=== PATIENT | male | born 1940 | race Caucasian/White ===

== ENCOUNTER 2016-04-23 21:32 | Inpatient (IN) | payer MEDICARE, OTHER ==
[~2016-04-23] VITALS: Ht 170.2 cm; Wt 72.1 kg
[~2016-04-23 21:32] MED LIST: ASPIRIN325 MG PO; ATIVAN0.5 MG PO; ATIVAN1 MG PO; BENAZEPRIL HCL10 MG PO; CIPRO500 MG PO; COMBIGAN OPHT DR5 ML EACH EYE; DECADRON4 MG PO; DEMEROL50 MG PO; FISH OIL 1,2001 CA1 PO; LOTREL 5/20 MG1 CAP PO; LUMIGAN 0.01%2.5 ML EACH EYE; MOBIC7.5 MG PO; NEURONTIN 300300 MG PO; NEXIUM40 MG PO; NIACIN500 MG PO; NIASPAN500 MG PO; NYSTATIN ORAL SU5 ML PO; PHENERGAN25 M1 PO; PRAVACHOL20 MG; REMERON15 MG PO; RESTORIL15 MG PO; RYTHMOL225 MG PO; SYNTHROID25 MCG PO; SYNTHROID50 MCG PO; TIMOPTIC 0.5 % O5 ML EACH EYE; ULTRAM50 MG PO; WELCHOL625 MG PO; ZANTAC150 MG; ZOFRAN8 MG PO; ZOLOFT50 MG PO
[2016-04-23 23:35] LABS: BASOPHILS 0.2 % (0.0-2.0); EOSINOPHILS 0.6 % (0-7); HEMATOCRIT 40.6 % (42.0-54.0); HEMOGLOBIN 13.3 g/dL (13.5-17.5); IMMATURE GRANULOCYTES 0.7 % (0-5); LYMPHOCYTES 7.7 % (15-50); MCH 32.7 pg (26.0-34.0); MCHC 32.8 g/dL (31.0-37.0); MCV 99.8 fL (80.0-100.0); MEAN PLATELET VOLUME 10.1 fL (7.4-10.4); MONOCYTES 4.7 % (2-11); NEUTROPHILS 86.1 % (40-80); RBC 4.07 10x6/uL (4.20-6.10)
[2016-04-23 23:38] LABS: PLATELET COUNT 250 10x3/uL (130-400)
[2016-04-23 23:50] LABS: ALBUMIN 2.4 g/dL (3.4-5.0); ALKALINE PHOSPHATASE 72 U/L (46-116); ALT (SGPT) 35 U/L (10-68); BILIRUBIN - TOTAL 0.26 mg/dL (0.2-1.3); CALC OSMOLALITY 279 mosm/kg (275-300); CARBON DIOXIDE 33.6 mmol/L (21.0-32.0); CHLORIDE - SERUM 101 mmol/L (98-107); GLUCOSE 96 mg/dL (74-106); POTASSIUM - SERUM 3.5 mmol/L (3.5-5.1); PROTEIN - SERUM 6.2 g/dL (6.4-8.2); SODIUM 141 mmol/L (136-145); UREA NITROGEN 10 mg/dL (7-18); eGFR NON AFRICAN AMERICAN 77 mL/min (90-120)
[2016-04-24 00:06] LABS: PRO BNP 229 pg/mL (0-450)
[2016-04-24 00:11] LABS: TROPONIN-I 1.235 ng/mL (0.000-0.060)
--- NOTE | 2016-04-24 01:50 | NUR ---
RECEIVED PATIENT TO ROOM IN STABLE CONDITION. NO SIGNS OF DISTRESS NOTED AT THIS TIME. FAMILY PRESENT. ORIENTED TO ROOM AND USE OF CALL LIGHT.
[2016-04-24 02:22] VITALS: BP 124/85; BMI 24.9
[2016-04-24 04:00] VITALS: BP 86/58
[2016-04-24 06:58] LABS: CKMB 2.7 U/L (0.0-3.6); CREATINE KINASE 50 UL (21-232)
[2016-04-24 06:59] LABS: TROPONIN-I 1.696 ng/mL (0.000-0.060)
--- NOTE | 2016-04-24 07:25 | NUR ---
LYING SUPINE WITH HOB AT 15 DEGREES. OXYGEN ON 2L VIA NC. CALL LIGHT IN REACH, WILL CONTINUE WITH PLAN OF CARE.
[2016-04-24 08:24] VITALS: BP 97/69
[2016-04-24 10:17] LABS: BASOPHILS 0.2 % (0.0-2.0); EOSINOPHILS 0.3 % (0-7); HEMATOCRIT 37.1 % (42.0-54.0); HEMOGLOBIN 11.9 g/dL (13.5-17.5); IMMATURE GRANULOCYTES 0.4 % (0-5); LYMPHOCYTES 14.7 % (15-50); MCH 32.2 pg (26.0-34.0); MCHC 32.1 g/dL (31.0-37.0); MCV 100.3 fL (80.0-100.0); MEAN PLATELET VOLUME 10.9 fL (7.4-10.4); MONOCYTES 6.8 % (2-11); NEUTROPHILS 77.6 % (40-80); PLATELET COUNT 228 10x3/uL (130-400); RDW 20.3 % (11.5-14.5); WBC 9.3 10x3/uL (4.8-10.8)
--- NOTE | 2016-04-24 10:53 | NUR ---
SCHEDULED MEDICATIONS ADMINISTERED AT THIS TIME. TAKEN WITHOUT DIFFICULTY. FAMILY AT BEDSIDE. ASSESSMENT PERFORMED PER FLOWSHEET. CALL LIGHT IN REACH, WILL CONTINUE WITH PLAN OF CARE.
[2016-04-24 12:43] VITALS: BP 84/55
[2016-04-24 13:06] LABS: CKMB 2.6 U/L (0.0-3.6); CREATINE KINASE 51 UL (21-232)
[2016-04-24 13:11] LABS: TROPONIN-I 0.958 ng/mL (0.000-0.060)
--- NOTE | 2016-04-24 14:00 | NUR ---
FAMILY REMAINS AT PT'S BEDSIDE. DENIES NEEDS. CALL LIGHT IN REACH. WILL CONTINUE WITH PLAN OF CARE.
[2016-04-24 14:43] VITALS: Ht 170.2 cm; Wt 72.1 kg
[2016-04-24 16:21] VITALS: BP 111/80
--- NOTE | 2016-04-24 18:43 | NUR ---
DENIES NEEDS AT THIS TIME. OXYGEN ON 2L VIA NC. FAMILY AT BEDSIDE. WILL CONTINUE WITH PLAN OF CARE.
[2016-04-24 19:00] VITALS: BP 120/82
--- NOTE | 2016-04-24 19:00 | NUR ---
BEDSIDE REPORT RECEIVED AND CARE OF PT ASSUMED. PT LYING IN SUPINE POSITION WITH EYES CLOSED. RESPIRATIONS EVEN AND UNLABORED. TELEMETRY REPORTS 70 SR AT THIS ASSESSMENT. IV IN RIGHT AC SALINE LOCKED. WILL MONITOR CLOSLEY FOR NEEDS. CALL LIGHT WITHIN REACH.
[2016-04-24 19:38] LABS: CKMB 2.4 U/L (0.0-3.6); CREATINE KINASE 34 UL (21-232)
[2016-04-24 19:41] LABS: TROPONIN-I 0.696 ng/mL (0.000-0.060)
--- NOTE | 2016-04-24 21:28 | NUR ---
HS MEDICATIONS GIVEN. WILL CONTINUE TO MONITOR FOR NEEDS.
[2016-04-25] VITALS (13 sets, daily range): BP systolic 52–157; BP diastolic 32–110
--- NOTE | 2016-04-25 01:46 | NUR ---
GAVE LOTENSIN PER PRN ORDER FOR ELEVATED BP OF 154/105. WILL MONITOR FOR EFFECTIVENESS.
[2016-04-25 05:45] LABS: BASOPHILS 0.1 % (0.0-2.0); EOSINOPHILS 1.4 % (0-7); HEMATOCRIT 41.3 % (42.0-54.0); HEMOGLOBIN 13.6 g/dL (13.5-17.5); IMMATURE GRANULOCYTES 0.5 % (0-5); MCH 32.6 pg (26.0-34.0); MCHC 32.9 g/dL (31.0-37.0); MEAN PLATELET VOLUME 10.3 fL (7.4-10.4); MONOCYTES 5.9 % (2-11); NEUTROPHILS 74.1 % (40-80); PLATELET COUNT 212 10x3/uL (130-400); RBC 4.17 10x6/uL (4.20-6.10); RDW 20.1 % (11.5-14.5); WBC 8.7 10x3/uL (4.8-10.8)
[2016-04-25 06:23] LABS: ALBUMIN 2.3 g/dL (3.4-5.0); ALKALINE PHOSPHATASE 67 U/L (46-116); ALT (SGPT) 29 U/L (10-68); BILIRUBIN - TOTAL 0.34 mg/dL (0.2-1.3); CALC OSMOLALITY 273 mosm/kg (275-300); CALCIUM 9.3 mg/dL (8.5-10.1); CARBON DIOXIDE 29.1 mmol/L (21.0-32.0); CHLORIDE - SERUM 100 mmol/L (98-107); CREATININE - SERUM 0.9 mg/dL (0.6-1.3); GLUCOSE 87 mg/dL (74-106); POTASSIUM - SERUM 3.9 mmol/L (3.5-5.1); PROTEIN - SERUM 6.6 g/dL (6.4-8.2); SODIUM 137 mmol/L (136-145); UREA NITROGEN 14 mg/dL (7-18); eGFR NON AFRICAN AMERICAN 87 mL/min (90-120)
--- NOTE | 2016-04-25 08:10 | NUR ---
PATIENT IN SUPINE POSITION TALKING WITH AT BEDSIDE. ASSESSMENT WAS COMPLETED AT THIS TIME. PATIENT AND DENIES NEEDS.
--- NOTE | 2016-04-25 10:25 | NUR ---
SPOKE WITH MEJIA LUGO FOR DR LOWERY. EXPLAINED THAT PATIENT IS CONCERNED HE HAS NOT HAD A BOWEL MOVEMENT SINCE FRIDAY. HE SAID THAT HE USUALLY TAKES MILK OF MAGNESIA EVERY NIGHT SO THAT HE CAN HAVE A BOWEL MOVEMENT AND HE HAS NOT HAD ANY SINCE HE HAS BEEN HERE. ALSO EXPLAINED THAT HE HAS HAD A HEADACHE FOR 2 DAYS THAT HE IS NOT GETTING ANY RELIEF FROM AND THAT HE HAS BEEN GIVEN DEMEROL, ULTRAM AND TYLENOL WITHOUT RELIEF. SHE STATED THAT SHE WOULD PUT SOME ORDERS IN.
--- NOTE | 2016-04-25 11:50 | NUR ---
PATIENT BACK TO BED FROM THE SHOWER. B/P (BEST OF 5) WAS 76/54 MAP 59. PATIENT SEEMS TO BE ASYMPTOMATIC AT THIS TIME. HE WAS PLACED SUPINE WITH FEET ELEVATED AT THIS TIME. WENT AND SPOKE WITH MEJIA LUGO. AT THIS TIME SHE JUST WANTS TO MONITOR THE PATIENTS BLOOD PRESSURES.
--- NOTE | 2016-04-25 12:23 | NUR ---
PER DR GOLDEN'S VERBAL ORDER, PRESSURE BAG BOLUS OF 500 CC/HR STARTED. WILL RUNN AT 100CC/HR AFTER COMPLETED. B/P 55/36 (45) HR 118.
--- NOTE | 2016-04-25 12:35 | NUR ---
SPOKE WITH MEJIA LUGO BECAUSE PATIENTS ANDREW BLOOD PRESSURE IS 52/32. ANOTHER 500 BOLUS ORDERED THROUGH PRESSURE BAG.
--- NOTE | 2016-04-25 12:53 | NUR ---
SPOKE WITH DR. HARRISON REGARDING BP 55/34. PATIENT IS ASYMPTOMATIC. NO NEW ORDERS PER DR. HARRISON. WILL CONTINUE TO MONITOR BP.
--- NOTE | 2016-04-25 19:15 | NUR ---
PATIENT COMING BACK FROM THE BATHROOM AND BEGAN HAVING SUDDEN ONSET SEVERE CHEST PAIN UNDER THE RIGHT BREAST THAT "SHOOTS STRAIGHT THROUGH" AND WENT UP INTO HIS SHOULDER. B/P 205/133. RAPID RESPONSE CALLED.
[2016-04-25 20:18] LABS: CKMB 1.2 U/L (0.0-3.6); CREATINE KINASE 27 UL (21-232); TROPONIN-I 0.334 ng/mL (0.000-0.060)
[2016-04-26] VITALS: BP 127/91
[2016-04-26 06:07] VITALS: BP 140/89
[2016-04-26 08:31] VITALS: BP 117/87
--- NOTE | 2016-04-26 09:22 | NUR ---
SCHEDULED MEDICATIONS ADMINISTERED AT THIS TIME. PT IS ALERT AND ORIENTED X4. ASSESSMENT PERFORMED PER FLOWSHEET. FAMILY AT BEDSIDE. SRX2 AND BED IN LOWEST POSITION AND LOCKED. CALL LIGHT IN REACH. WILL CONTINUE WITH PLAN OF CARE.
--- NOTE | 2016-04-26 10:30 | NUR ---
ASSISTED PT UP TO BEDSIDE COMMODE AT THIS TIME. PT PASSED GAS, BUT WAS UNABLE TO HAVE A BM. VOIDED 200 ML IN COMMODE. JULIO C CARE PROVIDED AND SKIN ASSESSMENT PERFORMED. NO S/S OF BREAKDOWN PRESENT. DENIES FURTHER NEEDS. CALL LIGHT IN REACH, WILL CONTINUE WITH PLAN OF CARE.
[2016-04-26 11:17] LABS: BASOPHILS 0.1 % (0.0-2.0); EOSINOPHILS 1.6 % (0-7); HEMATOCRIT 35.1 % (42.0-54.0); HEMOGLOBIN 11.3 g/dL (13.5-17.5); IMMATURE GRANULOCYTES 0.3 % (0-5); LYMPHOCYTES 17.3 % (15-50); MCHC 32.2 g/dL (31.0-37.0); MCV 99.4 fL (80.0-100.0); MEAN PLATELET VOLUME 9.9 fL (7.4-10.4); MONOCYTES 4.9 % (2-11); NEUTROPHILS 75.8 % (40-80); PLATELET COUNT 177 10x3/uL (130-400); RBC 3.53 10x6/uL (4.20-6.10); RDW 19.7 % (11.5-14.5); WBC 9.1 10x3/uL (4.8-10.8)
[2016-04-26 11:30] LABS: ALBUMIN 1.9 g/dL (3.4-5.0); ALKALINE PHOSPHATASE 62 U/L (46-116); ALT (SGPT) 27 U/L (10-68); CALC OSMOLALITY 266 mosm/kg (275-300); CALCIUM 8.4 mg/dL (8.5-10.1); CARBON DIOXIDE 32.5 mmol/L (21.0-32.0); CHLORIDE - SERUM 100 mmol/L (98-107); CREATININE - SERUM 0.8 mg/dL (0.6-1.3); GLUCOSE 96 mg/dL (74-106); POTASSIUM - SERUM 4.2 mmol/L (3.5-5.1); PROTEIN - SERUM 5.6 g/dL (6.4-8.2); SODIUM 134 mmol/L (136-145); UREA NITROGEN 11 mg/dL (7-18); eGFR NON AFRICAN AMERICAN > 90 mL/min (90-120)
[2016-04-26 11:36] VITALS: BP 116/82
--- NOTE | 2016-04-26 15:12 | NUR ---
NUTRITION MONITORING & EVAL CHART REVIEWED. PT VISIT. 25% INTAKE RECENT MEALS. PT STATES "AFTER MEDICATION LAST NITE EVERYTHING TASTED BITTER. DOES REPORT TASTE IS STARTING TO IMPROVE. RD FOLLOWING
[2016-04-26 15:30] VITALS: BP 108/77
--- NOTE | 2016-04-26 16:40 | CN ---
PATIENT NAME:KENNETH DAVIS MEDICAL RECORD: [id number] : 42 LOCATION:[id number] ADMIT DATE: 04/23/16 ACCOUNT: [id number] CONSULTING PHYSICIAN: DINAH HARRISON MD REFERRING PHYSICIAN: KASHIF LOWERY MD DATE OF CONSULTATION: 04/24/2016 Cardiology Consultation DIAGNOSES: 1. Non-Q-wave myocardial infarction. 2. Coronary artery disease. 3. Pneumonia. 4. Lung cancer. 5. Hypertension. 6. Hyperlipidemia. 7. Paroxysmal atrial fibrillation. 8. Sick sinus syndrome. 9. Status post pacemaker. HISTORY OF PRESENT ILLNESS: Mr. Davis presents with pneumonia. He has been having chest pain. He thought that this was secondary to coughing; however, his troponin is positive. He does not have a history of ischemic heart disease and does have a history of dysrhythmia, but has not had any atrial fibrillation on telemetry since being here. His EKG is with nonspecific ST-T abnormalities. PHYSICAL EXAMINATION: GENERAL APPEARANCE: Well-nourished, well-developed, appears stated age. Level of distress, comfortable. PSYCHIATRIC: Mental status, alert, normal affect. Orientation, oriented to time, place and person. EYES: Lids and conjunctiva, noninjected. No discharge, no pallor. ENT: Lips, teeth, gums, normal dentition. Oropharynx, no cyanosis, no pallor. NECK: Carotid arteries, bilateral normal upstroke, no bruits, no thrills. JUGULAR VEINS: No jugular venous pressure or distention. CERVICAL LYMPH NODES: Nontender, nonenlarged. THYROID: Not enlarged. Nontender. No nodules. LUNGS: Respiratory effort, unlabored. CHEST: Normal curvature. No thoracic deformity. No chest wall tenderness. Percussion, resonant. Auscultation, clear. No wheezes, no rales, no rhonchi. CARDIOVASCULAR: Precordial exam, nondisplaced. No heaves or pericardial thrills. Rate and rhythm, regular. Heart sounds, normal S1, normal S2. No S3, no gallop, no rub. Systolic murmur, not heard. Diastolic murmur, not heard. EXTREMITIES: No cyanosis, no edema. Peripheral pulses, full and equal in all extremities, except as noted. No bruits appreciated. ABDOMEN: Soft, nondistended. Normal aorta. No bruit. Nontender. No masses. Liver, nontender, no hepatomegaly. Spleen, nontender, no splenomegaly. MUSCULOSKELETAL: No joint tenderness. No joint swelling. No erythema. NEUROLOGICAL: Normal gait, normal strength, normal tone. SKIN: Warm and dry. REVIEW OF SYSTEMS: The patient reports easy bruising but reports no swollen glands. The patient reports no fever, no night sweats, no significant weight gain, no significant weight loss. No significant exercise tolerance. The patient reports no dry eyes, no irritation, no vision change. Patient reports CONSULT REPORT [id number] KENNETH DAVIS no difficulty hearing and no ear pain. Patient reports no frequent nose bleeds or nose and sinus problems. Patient reports on arm pain on exertion. No shortness of breath while lying down. No history of heart murmur. Patient reports no cough, no wheezing or coughing up blood. Patient reports no abdominal pain, no vomiting. Normal appetite. No diarrhea and not vomiting blood. No nausea and no constipation. Patient reports no incontinence. No difficulty urinating. No hematuria. No increased frequency. Patient reports no muscle aches. No weakness, no arthralgias, no back pain. No swelling of the extremities. Patient reports no abnormal mole, no jaundice, no rashes. Reports no loss of consciousness. No weakness and no numbness. No seizures, dizziness, or headaches. The patient reports no depression, no sleep disturbance, feeling safe in a relationship and no alcohol abuse. Patient reports on fatigue. Reports no runny nose or sinus pressure. No itching, no hives, and no frequent sneezing. OVERALL IMPRESSION: Non-Q-wave myocardial infarction in conjunction with pneumonia, most likely he does have hemodynamically significant coronary artery disease. We will proceed with coronary angiography after treatment of the pneumonia and stability from a pulmonary standpoint. TRANSINT:[id number] Voice Confirmation ID: [id number] DOCUMENT ID: [id number] DINAH HARRISON MD at 1640 CC: [id number] DICTATION DATE: 04/24/16 1259 STEAM SHOVEL OPERATOR: 04/24/16 1323 [place] [address]
--- NOTE | 2016-04-26 16:57 | NUR ---
Patient Name: KENNETH DAVIS Admission Status: ER Accout number: [id number] Admission Date: 04-23-2016 : 1940 Admission Diagnosis:NON-ST ELEVATION (NSTEMI) MYOCARDIAL INFARCTION Attending: BEVERLEY Current LOS: 3 Anticipated DC Date: 04-29-2016 Planned Disposition: Home with Home Health Primary Insurance: MEDICARE A & B Discharge Planning Comments: CM MET WITH PATIENT AND DAUGHTER (LESLEY) REGARDING D/C NEEDS AND PLANS. PATIENT STATED HE LIVES WITH HIS SPOUSE. PATIENT HAS A RAMP TO ENTER HIS HOME AND NO STAIRS INSIDE. PATIENT HAS HELP WITH HIS BATH, DRESSING, AND MEDS. PATIENT HAS A WALKER, CANE, BS COMMODE, SHOWER CHAIR, OXYGEN, NEBULIZER, AND PORTABLE O2. OXYGEN IS SUPPLIED BY [facility]. PATIENTS PCP IS DR. SALES AND PHARMACY IS [facility]. [facility]. CM WILL CONTINUE TO FOLLOW PATIENT WITH D/C NEEDS AND PLANS. PCP DR. SALES [facility] [phone] LESLEY (DAUGHTER) [phone] [facility]- [phone] Addictions Counselor Assistant: Maira Dhaliwal Is the patient Alert and Oriented? Yes 0 * How many steps to enter\exit or inside your home? RAMP 0 * PCP DR. SALES 0 * Pharmacy [facility] 0 * Preadmission Environment Home with Family 0 * ADLs Partial Dependent 0 * Partial ADLs (Assistance needed) Ambulation Bathing Dressing Medication Management Toileting Transfers 0 * Equipment Bedside Commode Cane Nebulizer Oxygen Shower Chair Walker 0 * Other Equipment PORTABLE OXYGEN 0 * List name and contact numbers for known caregivers / representatives who currently or will assist patient after discharge: LESLEY (DAUGHTER) [phone] 0 * Community resources currently utilized [facility] 0 * Please name any agencies selected above. CURRENT WITH [facility] 0 * Additional services required to return to the preadmission environment? Yes 0 * Can the patient safely return to the preadmission environment? Yes 0 * Has this patient been hospitalized within the prior 30 days at any hospital? No 0 Grand Total: 0
--- NOTE | 2016-04-26 19:57 | NUR ---
PT RESTING IN BED, FAMILY AT BEDSIDE. PT IS A&OX4. PT DENIES NEEDS AT THIS TIME. BED LOW. CL IN REACH.
[2016-04-26 20:20] VITALS: BP 142/106
[2016-04-27] VITALS (48 sets, daily range): BP systolic 108–159; BP diastolic 85–133
[2016-04-27 05:49] LABS: BASOPHILS 0.1 % (0.0-2.0); EOSINOPHILS 0.1 % (0-7); HEMATOCRIT 35.5 % (42.0-54.0); HEMOGLOBIN 11.3 g/dL (13.5-17.5); IMMATURE GRANULOCYTES 0.2 % (0-5); LYMPHOCYTES 15.3 % (15-50); MCH 31.6 pg (26.0-34.0); MCHC 31.8 g/dL (31.0-37.0); MCV 99.2 fL (80.0-100.0); MEAN PLATELET VOLUME 10.3 fL (7.4-10.4); MONOCYTES 3.6 % (2-11); NEUTROPHILS 80.7 % (40-80); PLATELET COUNT 192 10x3/uL (130-400); RBC 3.58 10x6/uL (4.20-6.10); RDW 19.7 % (11.5-14.5)
[2016-04-27 06:26] LABS: ALBUMIN 1.7 g/dL (3.4-5.0); ALKALINE PHOSPHATASE 57 U/L (46-116); ALT (SGPT) 26 U/L (10-68); BILIRUBIN - TOTAL 0.26 mg/dL (0.2-1.3); CALC OSMOLALITY 281 mosm/kg (275-300); CALCIUM 8.9 mg/dL (8.5-10.1); CARBON DIOXIDE 29.6 mmol/L (21.0-32.0); CHLORIDE - SERUM 104 mmol/L (98-107); CREATININE - SERUM 0.8 mg/dL (0.6-1.3); GLUCOSE 162 mg/dL (74-106); POTASSIUM - SERUM 3.7 mmol/L (3.5-5.1); PROTEIN - SERUM 5.7 g/dL (6.4-8.2); SODIUM 140 mmol/L (136-145); UREA NITROGEN 9 mg/dL (7-18); eGFR NON AFRICAN AMERICAN > 90 mL/min (90-120)
--- NOTE | 2016-04-27 07:22 | NUR ---
AWAKE AND ALERT THIS AM. PT DENIES NEEDS AT PRESENT TIME. PT'S GOWN AND UNDERWEAR OFF AT THIS TIME AND HE STATES, "I HONESTLY DON'T KNOW WHAT HAPPENED LAST NIGHT."
--- NOTE | 2016-04-27 08:09 | NUR ---
SCHEDULED MEDICATIONS ADMINISTERED AT THIS TIME. TELEMETRY ELECTRODES CHANGED. ASSESSMENT PERFORMED PER FLOWSHEET. PT ALERT AND ORIENTED. OXYGEN ON 2L VIA NC. CALL LIGHT, PERSONAL BELONGINGS AND URINAL IN REACH. WILL CONTINUE WITH PLAN OF CARE.
--- NOTE | 2016-04-27 11:23 | NUR ---
SCHEDULED FLORAJEN ADMINISTERED AT THIS TIME. PT ALERT AND ORIENTED WITH FAMILY AT BEDSIDE. CALL LIGHT IN REACH, DENIES NEEDS AT THIS TIME. WILL CONTINUE WITH PLAN OF CARE.
--- NOTE | 2016-04-27 13:25 | NUR ---
REHAB PRESCREENING Rehab referral received and chart reviewed. Mr. Turner does have a rehab diagnosis. PT and OT evaluations have been ordered. Rehab will continue to follow this patient for review of these evaluations in order to determine if Mr. Turner meets admission criteria. Thank you for this referral! Franca Johnson, GEOLOGICAL SAMPLE TESTER/[facility]
--- NOTE | 2016-04-27 13:30 | NUR ---
DISCUSSED EXTENSIVELY WITH FAMILY AND PATIENT ABOUT REHAB AND SNF. EXPLAINED THAT IT IS IMPORTANT FOR THE PATIENT TO BUILD UP STRENGTH AND ENDURANCE TO PROMOTE HEALING AND DECREASE THE CHANCE OF GETTING PNEUMONIA AGAIN. FAMILY AND PT VERBALIZED UNDERSTANDING. DENIES FURTHER NEEDS AT THIS TIME. WILL CONTINUE WITH PLAN OF CARE.
--- NOTE | 2016-04-27 15:30 | NUR ---
POSITIONED UPRIGHT IN BED AT THIS TIME. HOB AT 45 DEGREE ANGLE. PROVIDED WITH FRESH ICE WATER. DENIES FURTHER NEEDS. WILL CONTINUE WITH PLAN OF CARE.
--- NOTE | 2016-04-27 16:40 | NUR ---
1640: CALLED TO PT'S ROOM BY . UPON ENTERING PT'S ROOM HR WAS IN VISUAL RESPIRATORY DISTRESS. PT C/O OF CHEST PAIN THAT RADIATES TO HIS LEFT SHOULDER. PAIN IS CRUSHING AND SHARP. JULIO C BUCCAL AREA BLUEISH/PURPLE IN COLOR AND PT PALE IN COLOR. RESPIRATORY RATE 36-40, BP IN RIGHT ARM 125/94 AND IN LEFT 208/154. PULSE 117 PACED AND FLUTTER PER OTTONIEL, B2B SALES REPRESENTATIVE. RAPID RESPONSE CALLED AND LAWANDA TIJERINA FROM ICU RESPONDED. 1642: OXYGEN INCREASED TO 6L VIA OXYMIZER BY RT KENNETH. 1644: BP IN LEFT ARM 215/147 AND HEART RATE 117, 2MG OF MORPHINE GIVEN PER ORDERS FROM DR GOLDEN WHO IS AT BEDSIDE. 1647: 1 TABLET OF NITRO 0.4MG ADMINISTERED AT THIS TIME. 1648: BP IN LEFT ARM 194/138 AND PULSE 108. 1650: 2 MG OF MORPHINE ADMINISTERED PER DR GOLDEN'S ORDER 1652: 1 MORE TABLET OF NITRO 0.4 MG ADMINISTERED PER ORDER AND NITRO 1% OINTMENT APPLIED 2 INCHES TO LEFT RADIAL AREA PER ORDER. 1655: FAMILY NOTIFIED OF DECISION TO MOVE PATIENT TO ICU. PT AND FAMILY VERBALIZE UNDERSTANDING. 1700: BEDSIDE REPORT GIVEN TO LAWANDA TIJERINA FROM ICU AND PT TRANSFERRED TO ICU VIA BED.
--- NOTE | 2016-04-27 17:05 | NUR ---
PT DENIES ANY CHEST PAIN OR ANY PAIN AT ALL AT THIS TIME.
--- NOTE | 2016-04-27 17:05 | NUR ---
RECIEVED PT AT THIS TIME. DENIES ANY CHEST PAIN OR DISCOMFORT AT THIS TIME. VS: BP 144/101, PULSE 98 SINUS, RESPIRATIONS 24, TEMP 98.5, OXYGEN SATURATION 99% WITH 15L OXIMIZER. NO ACUTE DISTRESS NOTED. IS ON NITRO DRIP PER ORDERS. WILL CONTINUE TO OBSERVE.
[2016-04-27 17:27] LABS: ALKALINE PHOSPHATASE 70 U/L (46-116); ALT (SGPT) 27 U/L (10-68); BILIRUBIN - TOTAL 0.28 mg/dL (0.2-1.3); CALC OSMOLALITY 268 mosm/kg (275-300); CALCIUM 9.1 mg/dL (8.5-10.1); CARBON DIOXIDE 29.9 mmol/L (21.0-32.0); CHLORIDE - SERUM 100 mmol/L (98-107); CREATININE - SERUM 0.8 mg/dL (0.6-1.3); GLUCOSE 157 mg/dL (74-106); POTASSIUM - SERUM 3.9 mmol/L (3.5-5.1); PRO BNP 1641 pg/mL (0-450); PROTEIN - SERUM 6.5 g/dL (6.4-8.2); SODIUM 134 mmol/L (136-145); TROPONIN-I 0.054 ng/mL (0.000-0.060); UREA NITROGEN 8 mg/dL (7-18); eGFR NON AFRICAN AMERICAN > 90 mL/min (90-120)
--- NOTE | 2016-04-27 17:54 | NUR ---
RIGHT AC PERIPHERAL LINE DC AT THIS TIME, NOTED INFILTRATED WHEN ATTEMPTING TO FLUSH LINE.
--- NOTE | 2016-04-27 17:56 | NUR ---
PT COMPLAINT OF SHARP CHEST PAIN X 2 THAT LASTS ONLY FOR A SECOND THEN COMPLETLY GOES AWAY. PT IS ON NITRO DRIP. WILL CONTINUE TO OBSERVE.
--- NOTE | 2016-04-27 18:04 | NUR ---
PT FAMILY IN ROOM WITH PT. UPDATE GIVEN. PT TAKEN PT HEARING AIDS, RING, AND GLASSES HOME. WILL CONTINUE TO OBSERVE.
--- NOTE | 2016-04-27 18:24 | NUR ---
PT DENIES ANY CHEST PAIN AT THIS TIME AND DENEIS ANY PAIN AT ALL. WILL CONTINUE TO OBSERVE.
--- NOTE | 2016-04-27 19:00 | NUR ---
PT AOX4, HARD OF HEARING. DENIES CHEST PAIN/PAIN AT THIS TIME. NITRO GTT INFUSING, HYPERTENSIVE ON MONITOR 144/103. SHALLOW RESPIRATIONS, SPO2 97 ON 15L OXYMIZER. PT REPOSITIONED FOR COMFORT. FRESH WATER TO BEDSIDE. REPOSITIONS SELF WITH MINIMAL TO NO ASSISTANCE. VOICES NO FURTHER NEEDS AT THIS TIME. CALL LIGHT AND BEDSIDE TABLE WITHIN PT REACH. CPOC.
--- NOTE | 2016-04-27 20:00 | NUR ---
CHICO AT BEDSIDE.
--- NOTE | 2016-04-27 21:00 | NUR ---
FAMILY AT BEDSIDE, QUESTIONS ANSWERED AND UPDATE GIVEN. SANDWICH TRAY TO BEDSIDE PER REQUEST. VSS, DENIES PAIN AT THIS TIME. NO S/S OF ACUTE DISTRESS NOTED. CALL LIGHT AND BEDSIDE TABLE WITHIN PT REACH. CPOC.
--- NOTE | 2016-04-27 23:00 | NUR ---
REASSESSMENT COMPLETE, SEE FLOWSHEET FOR ALL FINDINGS. PT RESTING QUIETLY, DENIES PAIN AT THIS TIME. BP CONTINUES TO TREND DOWN, NITRO GTT TITRATING DOWN. PT REPOSITIONED SELF INDEPENDENTLY. VOICES NO NEEDS AT THIS TIME. CALL LIGHT AND BEDSIDE TABLE WITHIN PT REACH. CPOC.
[2016-04-28] VITALS (69 sets, daily range): BP systolic 80–209; BP diastolic 61–145
--- NOTE | 2016-04-28 03:10 | NUR ---
PT SLEEPING QUIETLY WITH VSS. NO C/O PAIN, NO S/S OF ACUTE DISTRESS. REPOSITIONED SELF INDEPENDENTLY. REASSESSMENT COMPLETE, WITH NO ACUTE CHANGES NOTED AT THIS TIME. CALL LIGHT WITHIN PT REACH. ROOM VISIBLE FROM NURSES STATION. CPOC.
[2016-04-28 04:54] LABS: BASOPHILS 0.1 % (0.0-2.0); EOSINOPHILS 0 % (0-7); HEMATOCRIT 31.1 % (42.0-54.0); IMMATURE GRANULOCYTES 0.4 % (0-5); LYMPHOCYTES 16.3 % (15-50); MCH 32.2 pg (26.0-34.0); MCHC 32.2 g/dL (31.0-37.0); MEAN PLATELET VOLUME 10.2 fL (7.4-10.4); MONOCYTES 6.1 % (2-11); NEUTROPHILS 77.1 % (40-80); PLATELET COUNT 192 10x3/uL (130-400); RBC 3.11 10x6/uL (4.20-6.10); RDW 19.7 % (11.5-14.5); WBC 8.4 10x3/uL (4.8-10.8)
[2016-04-28 05:07] LABS: ALBUMIN 1.7 g/dL (3.4-5.0); ALKALINE PHOSPHATASE 54 U/L (46-116); ALT (SGPT) 22 U/L (10-68); CALC OSMOLALITY 277 mosm/kg (275-300); CALCIUM 8.5 mg/dL (8.5-10.1); CARBON DIOXIDE 33.9 mmol/L (21.0-32.0); CHLORIDE - SERUM 102 mmol/L (98-107); CREATININE - SERUM 0.7 mg/dL (0.6-1.3); GLUCOSE 120 mg/dL (74-106); POTASSIUM - SERUM 4.1 mmol/L (3.5-5.1); PROTEIN - SERUM 5.4 g/dL (6.4-8.2); SODIUM 140 mmol/L (136-145); UREA NITROGEN 8 mg/dL (7-18); eGFR NON AFRICAN AMERICAN > 90 mL/min (90-120)
--- NOTE | 2016-04-28 06:30 | NUR ---
FAMILY AT BEDSIDE, QUESTIONS ANSWERED AND UPDATE GIVEN. CPOC.
--- NOTE | 2016-04-28 08:45 | NUR ---
BLOOD PRESSURE NOTED AT 86/55 WITH MAP 63. NITRO TURNED OFF AT THIS TIME. PT DENIES ANY NEEDS. AWAKE SITTING UP IN BED EATING BREAKFAST. WILL CONTINUE PLAN OF CARE.
--- NOTE | 2016-04-28 10:15 | NUR ---
LYING IN BED RESTING AT THIS TIME. AWAKENS EASILY WHEN STAFF STATES PT NAME. NO ACUATE DISTRESS NOTED. CONTINUING TO MONITOR VS. BP 106/86 AT THIS TIME WITH NITRO DRIP TURNED OFF. WILL CONTINUE PLAN OF CARE.
--- NOTE | 2016-04-28 11:45 | NUR ---
SITTING UP IN BED EATING LUNCH AT THIS TIME. NO ACUTE DISTRESS NOTED. DENIES ANY NEEDS. BP 110/88. WILL CONTINUE PLAN OF CARE.
--- NOTE | 2016-04-28 13:13 | NUR ---
NOTED ORDERS TO TRANSFER PT. NOTIFIED HEALTH CARE COORDINATOR, WAITING TO RECIEVE ROOM NUMBER.
--- NOTE | 2016-04-28 14:16 | NUR ---
BP NOTED AT 176/128. PT DID STATE EXPERIENCING SLIGHT CHEST TIGHTNESS APPROX 1/10. PT STATES TIGHTNESS IS BARELY ENOUGH TO RATE A 1 OUT OF 10. NITRO SUBLINGUAL ADMIN AT THIS TIME. WILL CONTINUE TO OBSERVE.
--- NOTE | 2016-04-28 14:38 | NUR ---
PT DENIES ANY CHEST PAIN AT THIS TIME. WILL CONTINUE TO OBSERVE.
--- NOTE | 2016-04-28 15:28 | NUR ---
PT NOTED COMPLAINT OF CHEST PAIN LEVEL 9/10. NITRO DRIP TURNED BACK ON AT THIS TIME. BP 209/145, MAP 162. NAUSEA AND DRY HEAVING NOTED BY PT. IV ZOFRAN ADMIN AT THIS TIME WELL. PULSE RATE [address] NUNES SHORTLY.
--- NOTE | 2016-04-28 15:36 | NUR ---
DR PENA TO NOTIFY OF PT STATUS. NOTED ORDERS TO ADMIN METROPROLOL 5MG IV Q5MIN X 2. THEN TO ADMIN 12.5MG LABETALOL. WILL PLACE ORDERS.
--- NOTE | 2016-04-28 15:46 | NUR ---
DR CHICO BURGOS. UPDATE GIVEN.
--- NOTE | 2016-04-28 15:59 | NUR ---
PT STATES PAIN LEVEL IS AT A 3 AT THIS TIME. BP 179/127 MAP 142. CONTINUING TO OBSERVE.
--- NOTE | 2016-04-28 16:13 | NUR ---
PT STATES CHEST PAIN LEVEL IS AT A 1. BP 177/127, MAP 145. CONTINUING TO OBSERVE.
--- NOTE | 2016-04-28 17:26 | NUR ---
CALLED PT FAMILY TO GIVE UPDATE OF PT. SPOKE WITH LESLEY. LESLEY STATED SHE AND PT WOULD BE BY TO SEE PT AT NEXT VISITATION. NO FURTHER QUESTIONS NOTED. PT SITTING UP IN BED WATCHING TV. DENIES ANY NEEDS. WILL CONTINUE TO OBSERVE.
--- NOTE | 2016-04-28 18:21 | NUR ---
PT AT BEDSIDE. NO ACUTE DISTRESS NOTED. DENIES ANY NEEDS. WILL CONTINUE PLAN OF CARE.
--- NOTE | 2016-04-28 19:30 | NUR ---
REC'D TO CARE, METER INSTALLER AND REMOVER PER FLOWSHEET. PT AWAKE AND ORIENTED. VSS. IVFS INFUSINF TO L CHEST INFUSAPORT, DSG C/D/I - SEE FLOWSHEET, WILL TITRATE NITRO PER MD ORDERS. LUNGS WITH FAINT CRACKLES B/L, DIMINISHED BASES. CM - NSR. O2 OXYMIZER - WILL WEAN TOLERATED. PT DENIES PAIN OR NEEDS. C/L IN REACH.
--- NOTE | 2016-04-28 20:00 | NUR ---
REPOSITIONED FOR COMFORT, UP IN BED TO R SIDE. VILLANUEVA EMPTIED OF 350ML CLEAR, YELLOW URINE.
--- NOTE | 2016-04-28 21:00 | NUR ---
NITRO GTT WEANED OFF. PT RESTING WITH EYES CLOSED, VSS. NO SIGN OF DISTRESS.
--- NOTE | 2016-04-28 21:20 | NUR ---
FAMILY AT BS, UPDATE GIVEN AND QUESTIONS ANSWERED.
--- NOTE | 2016-04-28 23:30 | NUR ---
REASSESSMENT PER FLOWSHEET, NO ACUTE CHANGES, VSS, NITRO REMAINS OFF. DENIES SOB OR CP. ALARMS ON AND C/L IN REACH.
[2016-04-29] VITALS (68 sets, daily range): BP systolic 86–176; BP diastolic 69–123
--- NOTE | 2016-04-29 00:20 | NUR ---
PT RESTING WITH EYES CLOSED, VSS. NO SIGN OF DISTRESS.
--- NOTE | 2016-04-29 02:25 | NUR ---
PT C/O "CANT GET COMFORTABLE". REPOSITIONED UP IN BED WITH PILLOWS AND ADMIN MORPHINE 2MG SIVP PER PRN ORDER.
--- NOTE | 2016-04-29 02:48 | NUR ---
RESTING QUIETLY, VSS. "FEELING BETTER". NO SIGN OF DISTRESS.
[2016-04-29 05:55] LABS: BASOPHILS 0.1 % (0.0-2.0); EOSINOPHILS 0.6 % (0-7); HEMATOCRIT 29.9 % (42.0-54.0); HEMOGLOBIN 9.3 g/dL (13.5-17.5); IMMATURE GRANULOCYTES 0.3 % (0-5); LYMPHOCYTES 15.2 % (15-50); MCH 31.3 pg (26.0-34.0); MCHC 31.1 g/dL (31.0-37.0); MCV 100.7 fL (80.0-100.0); MEAN PLATELET VOLUME 10.7 fL (7.4-10.4); MONOCYTES 7.2 % (2-11); NEUTROPHILS 76.6 % (40-80); PLATELET COUNT 192 10x3/uL (130-400); RBC 2.97 10x6/uL (4.20-6.10); RDW 19.4 % (11.5-14.5); WBC 8.7 10x3/uL (4.8-10.8)
--- NOTE | 2016-04-29 06:17 | NUR ---
DAUGHTER AT , UPDATE GIVEN AND QUESTIONS ANSWERED.
[2016-04-29 07:06] LABS: ALBUMIN 1.9 g/dL (3.4-5.0); ALKALINE PHOSPHATASE 62 U/L (46-116); CALC OSMOLALITY 269 mosm/kg (275-300); CALCIUM 8.6 mg/dL (8.5-10.1); CARBON DIOXIDE 35.8 mmol/L (21.0-32.0); CHLORIDE - SERUM 97 mmol/L (98-107); CREATININE - SERUM 0.7 mg/dL (0.6-1.3); GLUCOSE 108 mg/dL (74-106); MAGNESIUM - SERUM 1.7 mg/dL (1.8-2.4); PHOSPHOROUS 3.1 mg/dL (2.5-4.9); POTASSIUM - SERUM 3.7 mmol/L (3.5-5.1); PROTEIN - SERUM 5.5 g/dL (6.4-8.2); SODIUM 135 mmol/L (136-145); TROPONIN-I 0.024 ng/mL (0.000-0.060); UREA NITROGEN 10 mg/dL (7-18); eGFR NON AFRICAN AMERICAN > 90 mL/min (90-120)
[2016-04-29 07:13] LABS: ALT (SGPT) 28 U/L (10-68)
--- NOTE | 2016-04-29 07:15 | NUR ---
ASSESSMENT COMPLETE. AAO X4. DENIES PAIN AT REST, REPORTS SHORTNESS OF BREATH AND CHEST PAIN ON MINIMAL EXERTION, LIKE WHEN TURNING AND USING URINAL. EXPIRATORY WHEEZING IN RUL, RML, BARBARA. DIMINISHED LOWER LOBES BILAT. S1S2 NOTED, RADIAL AND PEDAL PULSES PALP. NSR. 13L OXYMISER. GENERALIZED WEAKNESS. HYPOACTIVE BOWEL SOUNDS X4. NO APPETITE. REPORTS SHORTNESS OF BREATH WHEN EATING. SAYS HE HAS NOT HAD A BM IN 2 WEEKS. RT CHEST INFUSAPORT SITE WNL. FOR OTHER ASSESSMENT FINDINGS SEE FLOWSHEET.
--- NOTE | 2016-04-29 09:10 | NUR ---
FAMILY AT BEDSIDE. UPDATE PROVIDED. NOTIFIED DR. GONZALEZ THAT FAMILY WANTED TO SPEAK WITH HIM.
--- NOTE | 2016-04-29 09:37 | NUR ---
NUTRITION MONITORING & EVAL CHART REVIEWED. PT NOW IN ICU. AHA SOFT DIET. ENSURE AT BEDSIDE. WILL MONITOR PO INTAKE, PT PROGRESS. RD FOLLOWING
--- NOTE | 2016-04-29 10:12 | NUR ---
Reviewed patient's chart for the rehab referral recieved on 04/27/16. He has since been moved to the ICU and has not had a PT eval. Rehab will continue to follow him. Karol Clarke RN CL
--- NOTE | 2016-04-29 11:21 | NUR ---
CALLED AND NOTIFIED FAMILY THAT DR. BEJARANO IS HERE, THEY SAID THEY WOULD BE ON THEIR WAY. REASSESSMENT COMPLETE, SEE FLOWSHEET FOR DETAILS.
--- NOTE | 2016-04-29 13:46 | NUR ---
VILLANUEVA PLACED WITHOUT DIFFICULTY, PATIENT TOLERATED WELL
--- NOTE | 2016-04-29 15:45 | NUR ---
REASSESSMENT COMPLETE, SEE FLOWSHEET FOR DETAILS. FAMILY AT BEDSIDE, UPDATED
--- NOTE | 2016-04-29 17:23 | NUR ---
COMPLETE LINEN CHANGE PER PATIENT REQUEST. BROUGHT MEAL TRAY TO PT. ASSISTANCE PROVIDED. WILL CONTINUE TO MONITOR.
--- NOTE | 2016-04-29 18:20 | NUR ---
FAMILY AT BEDSIDE, UPDATE PROVIDED
--- NOTE | 2016-04-29 19:15 | NUR ---
REC'D TO CARE, FORM STRIPPER PER FLOWSHEET. PT AWAKENS TO NAME, SLIGHT CONFUSION AND SPEECH DIFFICULT TO UNDERSTAND. EASILY REORIENTED AND ANSWERS QUESTIONS APPROP. VSS. LUNGS WITH CRACKLES AND WHEEZES B/L. PT REPORTS SOB WITH MOVING AND COUGHING. HEART RRR, CM - SR. IVF INFUSING TO R INFUSAPORT - SEE FLOWSHEET - WILL TITRATE NITRO GTT PER MD ORDERS. VILLANUEVA CATH PATENT AND DRAINING CLEAR, YELLOW URINE. PT DENIES NEEDS. ALARMS ON AND C/L IN REACH.
--- NOTE | 2016-04-29 21:00 | NUR ---
DAUGHTER AT BS, UPDATE GIVEN AND QUESTIONS ANSWERED. PT NOTED TO BE SOB WITH TALKING, DAUGHTER VERBALIZES UNDERSTANDING OF LIMITING VISIT, AND SHE ENCOURAGED HIM TO REST.
--- NOTE | 2016-04-29 21:30 | NUR ---
PO MEDS GIVEN PER ORDERS WITH PT UP IN BED, ASPIRATION PRECAUTION - THICKENED LIQUID. PT ATE PUDDING X 2 AND ICE CREAM INDEPENDENTLY, NO SIGN OF DIFFICULTY. ALARMS ON. C/L IN REACH.
--- NOTE | 2016-04-29 23:35 | NUR ---
REASSESSMENT PER FLOWSHEET. NO ACUTE CHANGES. PT RESTING L SIDE, NO SIGN OF DISTRESS. AUDIBLE WHEEZES, POX 95%. NITRO GTT AT 10MCG/MIN. ALARMS ON.
[2016-04-30] VITALS (32 sets, daily range): BP systolic 92–165; BP diastolic 59–105
--- NOTE | 2016-04-30 01:25 | NUR ---
REPOSITIONED UP IN BED TO R SIDE. VSS. DENIES NEEDS.
--- NOTE | 2016-04-30 03:05 | NUR ---
REASSESSMENT PER FLOWSHEET. LUNGS CLEAR, DIMINISHED, RR 13 UNLABORED. VSS. NITRO CONT AT 10MCG/MIN. ALARMS ON. C/L IN REACH.
--- NOTE | 2016-04-30 03:46 | NUR ---
COMPLETE BATH AND VILLANUEVA CARE DONE. ORAL CARE PROVIDED FOR DRY MOUTH/TONGUE. REPOSTIONED UP IN BED TO L SIDE. ALARMS ON AND C/L IN REACH/
[2016-04-30 05:08] LABS: BASOPHILS 0 % (0.0-2.0); EOSINOPHILS 0 % (0-7); HEMATOCRIT 30.2 % (42.0-54.0); HEMOGLOBIN 9.5 g/dL (13.5-17.5); IMMATURE GRANULOCYTES 0.3 % (0-5); LYMPHOCYTES 13.1 % (15-50); MCH 31.4 pg (26.0-34.0); MCHC 31.5 g/dL (31.0-37.0); MCV 99.7 fL (80.0-100.0); MEAN PLATELET VOLUME 10.5 fL (7.4-10.4); MONOCYTES 6.1 % (2-11); NEUTROPHILS 80.5 % (40-80); PLATELET COUNT 187 10x3/uL (130-400); RBC 3.03 10x6/uL (4.20-6.10); RDW 18.9 % (11.5-14.5)
--- NOTE | 2016-04-30 05:26 | NUR ---
PT RESTLESS, C/O BACK PAIN. ADMIN PRN MORPHINE - REPOSITIONED UP IN BED FOR COMFORT. ALARMS ON. WILL CONT CLOSE MONITORING.
[2016-04-30 05:32] LABS: ALBUMIN 2.2 g/dL (3.4-5.0); ALKALINE PHOSPHATASE 78 U/L (46-116); ALT (SGPT) 30 U/L (10-68); BILIRUBIN - TOTAL 0.24 mg/dL (0.2-1.3); CALC OSMOLALITY 275 mosm/kg (275-300); CALCIUM 9.4 mg/dL (8.5-10.1); CHLORIDE - SERUM 93 mmol/L (98-107); CREATININE - SERUM 0.8 mg/dL (0.6-1.3); GLUCOSE 159 mg/dL (74-106); POTASSIUM - SERUM 3.8 mmol/L (3.5-5.1); PROTEIN - SERUM 6.2 g/dL (6.4-8.2); SODIUM 136 mmol/L (136-145); UREA NITROGEN 14 mg/dL (7-18); eGFR NON AFRICAN AMERICAN > 90 mL/min (90-120)
[2016-04-30 05:33] LABS: CARBON DIOXIDE 42.2 mmol/L (21.0-32.0)
--- NOTE | 2016-04-30 06:20 | NUR ---
DR. LISA BURGOS RE: CO2 LEVEL
--- NOTE | 2016-04-30 06:28 | NUR ---
NO VISITORS. DAUGHTER UPDATED VIA PHONE. PT RESTING QUIETLY, VSS.
--- NOTE | 2016-04-30 07:00 | NUR ---
ASSESSMENT COMPLETE NO CO AT TIME.
--- NOTE | 2016-04-30 17:00 | NUR ---
UP IN CHAIR EATING [facility] TOAST. WHOLE ENSURE CONSUMED.
--- NOTE | 2016-04-30 17:00 | NUR ---
TO XRAY VIA CHAIR FOR MODIFIED BARIUM SWALLOW
--- NOTE | 2016-04-30 17:20 | NUR ---
BACK FROM XRAY TRANSFER TO CHAIR. ENSURE GIVEN. REQUESTING ALFONSO CHRISTOPHER.
--- NOTE | 2016-04-30 19:40 | NUR ---
REC'D TO CARE, SITTING UP IN CHAIR. "TIRED". ORIENTED TO SITUATION. LUNGS WITH FAINT CRACKLES B/L, DIMINISHED. POX 93% ON 9L OXYMIZER. IVF TO R CHEST INFUSAPORT, DSG C/D/I.. DENIES PAIN OR NAUSEA. SOB NOTED WITH TALKING. FLUTTER AND I.S. 250-500. CM - NSR. C/L IN REACH. ALARMS ON.
--- NOTE | 2016-04-30 20:39 | NUR ---
BACK TO BED WITH ASSIST X 2. SOB WITH EXERTION FOR A FEW MINUTES, THEN UNLAB.
--- NOTE | 2016-04-30 21:20 | NUR ---
DAUGHTER AT BS, UPDATE GIVEN AND QUESTIONS ANSWERED. PT RESTING AT THIS TIME AND SHE DID NOT WANT TO WAKE HIM.
--- NOTE | 2016-04-30 23:23 | NUR ---
REASSESSMENT PER FLOWSHEET. NO ACUTE CHANGES. RESTING ON R SIDE, COVERS HEAD WITH BLANKET. NO SIGN OF DISTRESS.
[2016-05-01] VITALS (27 sets, daily range): BP systolic 119–187; BP diastolic 89–132
--- NOTE | 2016-05-01 00:32 | NUR ---
oral care provided and pt repositioned up in bed to l side with pillows. vss. no sign of distress.
--- NOTE | 2016-05-01 03:07 | NUR ---
BATH, VILLANUEVA CARE AND LINEN CHANGE DONE. STERILE DSG CHANGE TO R CHEST INFUSAPORT, NO REDNESS OR SWELLING AT SITE. AFTER TURNING AND REPOSITIONING PT C/O NECK/BACK PAIN - PILLOWS POSITIONED FOR COMFORT AND PRN MORPHINE GIVEN. WILL CONT CLOSE MONITORING.
[2016-05-01 05:11] LABS: BASOPHILS 0.1 % (0.0-2.0); EOSINOPHILS 0 % (0-7); HEMOGLOBIN 9.8 g/dL (13.5-17.5); IMMATURE GRANULOCYTES 0.4 % (0-5); LYMPHOCYTES 8.8 % (15-50); MCH 31.6 pg (26.0-34.0); MCHC 31.6 g/dL (31.0-37.0); MEAN PLATELET VOLUME 10.6 fL (7.4-10.4); MONOCYTES 4.7 % (2-11); PLATELET COUNT 215 10x3/uL (130-400); RDW 19.2 % (11.5-14.5); WBC 10.1 10x3/uL (4.8-10.8)
[2016-05-01 05:30] LABS: ALBUMIN 2.4 g/dL (3.4-5.0); ALKALINE PHOSPHATASE 112 U/L (46-116); CALCIUM 9.3 mg/dL (8.5-10.1); CHLORIDE - SERUM 96 mmol/L (98-107); CREATININE - SERUM 0.8 mg/dL (0.6-1.3); GLUCOSE 114 mg/dL (74-106); POTASSIUM - SERUM 3.9 mmol/L (3.5-5.1); PROTEIN - SERUM 6.1 g/dL (6.4-8.2); SODIUM 139 mmol/L (136-145); eGFR NON AFRICAN AMERICAN > 90 mL/min (90-120)
[2016-05-01 05:34] LABS: CALC OSMOLALITY 280 mosm/kg (275-300); UREA NITROGEN 19 mg/dL (7-18)
[2016-05-01 05:35] LABS: ALT (SGPT) 45 U/L (10-68); CARBON DIOXIDE 44.7 mmol/L (21.0-32.0)
--- NOTE | 2016-05-01 06:27 | NUR ---
AND DAUGHTER AT . UPDATE GIVEN AND QUESTIONS ANSWERED.
--- NOTE | 2016-05-01 09:20 | NUR ---
NUTRITION MONITORING & EVAL CHART REVIEWED. NURSING REPORTS PT WITH GOOD PO INTAKE, ALSO DRINKING ENSURE WITH MEALS. WILL PROVIDE DIET REC'D BY SPEECH THERAPY, ENSURE. RD FOLLOWING
--- NOTE | 2016-05-01 19:00 | NUR ---
REPORT RECIEVED, INITIAL ASSESSMENT COMPLETE, PLEASE SEE FLOW SHEETS FOR DETAILS. BED LOW AND LOCKED, CALL LIGHT IN REACH. STATED PAIN IN CHAEST 2/10 AND CONSTANT, THIS IS A CHRONIC PAIN. DENIES NEEDS AT THIS TIME. PT MOVED BACK TO BED AND SPO2 DROPPED TO 74%, INSTRUCTED ON SLOW DEEP BREATHS AND SPO2 INCREASED TO 94%. SBP 187, WILL GIVE ORDERED MEDS. WILL CONTINUE TO MONITOR.
--- NOTE | 2016-05-01 21:00 | NUR ---
PT RESTING, DENIES PAIN/NEEDS AT THIS TIME. NO S&S OF ACUTE DISTRESS NOTED. BED LOW AND LOCKED, CALL LIGHT IN REACH. VSS, WILL CONTINUE TO MONITOR.
--- NOTE | 2016-05-01 23:00 | NUR ---
REASSESSMENT COMPLETE, PLEASE SEE FLOW SHEETS FOR DETAILS. BED LOW AND LOCKED, CALL LIGHT IN REACH. VSS AT THIS TIME, WILL CONTINUE TO MONITOR.
[2016-05-02] VITALS (14 sets, daily range): BP systolic 110–169; BP diastolic 83–120
--- NOTE | 2016-05-02 01:00 | NUR ---
PT SLEEPING. NO S&S OF ACUTE DISTRESS. 15L OXYMIZER. NSR AT 75 ON MONITOR. VSS, WILL CONTINUE TO MONITOR.
--- NOTE | 2016-05-02 02:43 | NUR ---
REASSESSMENT COMPLETE, PLEASE SEE FLOW SHEETS FOR DETAILS. REPOSITIONING OFFERED AND REFUSED. BED LOW AND LOCKED, CALL LIGHT IN REACH. VSS, WILL CONTINUE TO MONITOR.
--- NOTE | 2016-05-02 02:45 | NUR ---
VILLANUEVA CARE PROVIDED USING BARDS WIPES. VSS, WILL CONTINUE TO MONITOR.
--- NOTE | 2016-05-02 05:15 | NUR ---
PROVIDED VILLANUEVA CARE, PT ASKED FOR BOLUS DOSE OF MORPHINE FOR PAIN 01/14, THIS WAS PROVIDED. OTHER VSS AT THIS TIME, BED LOW AND LOCKED, CALL LIGHT IN REACH, WILL CONTINUE TO MONITOR.
--- NOTE | 2016-05-02 05:30 | NUR ---
REPOSITIONING PROVIDED. DENIES PAIN/NEEDS AT THIS TIME. BED LOW AND LOCKED, CALL LIGHT IN REACH. VSS, WILL CONTINUE TO MONITOR.
--- NOTE | 2016-05-02 09:30 | NUR ---
NUTRITION MONITORING & EVAL CHART REVIEWED. PT AWAITING ASSIST WITH BREAKFAST. REMAINS ON [facility] SOFT DIET. RD FOLLOWING
--- NOTE | 2016-05-02 14:46 | NUR ---
0700 ASSESSMENT COMPLETE PER FLOWSHEET. PT VOICES NO CO AT TIME. 0830 UP TO CHAIR PT VERY WEAK. PT MORE SOB NOT RECOVERING FAST WITH O2 SATS DOWN IN THE 70S. O2 ON 15 LITERS OXYYMIZERT. 0900 BACK TO BED DUE TO NOT BEING ABLE TO TOLERATE BEING UP IN CHAIR. DR GONZALEZ HERE. FAMILY TALKING ABOUT HOSPICE WAITING ON BROTHER FROM [place]. 1200 PT REFUSING BIPAP STATES DONT WANT TO BE INTUBATED.
--- NOTE | 2016-05-02 17:06 | NUR ---
HOSPICE NURSE HERE.
--- NOTE | 2016-05-02 17:38 | NUR ---
HOSPICE NURSE IN ROOM ATTEMPT TO GET LEGALS SIGN BY PATIENT. PT TO WEAK AND SOB. STEP IN AND SIGNED ALL LEGAL. PT STATES YES WANTS TO GO TO HOSPICE.
--- NOTE | 2016-05-02 17:40 | NUR ---
MORPHINE GIVEN FOR SOB. ALL LEGALS SIGNED BY . PT DISCHARGED
--- NOTE | 2016-06-13 15:43 | DS ---
PATIENT:KENNETH DAVIS :42 MEDICAL RECORD: [id number] DISCHARGE SUMMARY ADMISSION DATE: 04/23/16 DISCHARGE DATE: 05/02/16 ADMISSION DATE: 04/23/2016 DISCHARGE DATE: 05/02/2016 DISCHARGE DIAGNOSES: 1. Acute coronary syndrome. 2. Poorly-controlled hypertension. 3. Bilateral pleural effusions with pneumonia. 4. Acute exacerbation of chronic obstructive pulmonary disease. 5. Nonsmall cell lung carcinoma. 6. Atrial fibrillation. 7. Hypothyroid. 8. Anemia. 9. Chronic debilitation. 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 11. Hypoxic respiratory failure. 12. Non-Q-wave myocardial infarction. CONSULTS: 1. Antonino Capone MD 2. Vel Hugo MD. 3. Adiel Dubois MD. DIAGNOSTIC TESTS: Chest x-ray, which showed infiltrates, moderate interstitial changes. HOSPITAL COURSE: This 76-year-old male was admitted with shortness of breath, pneumonia and chest pain, was placed in the acute care setting, started on broad-spectrum antibiotics. Several consultants were on the patient's case. He required pressors and aggressive pulmonary toilet. He did have a non-Q-wave NM, but was unstable for heart catheterization. He was medically managed with aspirin and beta blockade. His clinical course was long. He was made a DNI and DNR. The antibiotic coverage included Levaquin and Rocephin. He did stabilized and ____ was transferred to rehabilitation. See med rec. TRANSINT:[id number] Voice Confirmation ID: [id number] DOCUMENT ID: [id number] Dictated By: OLGA WALLACE I have interviewed/examined the above patient and agree with these documented findings. TRISTAN BEJARANO MD at 1515 at 1543 CC: [id number] DICTATION DATE: 06/12/16 0842 STEEL RULE DIE MAKER APPRENTICE: 06/13/16 0020 DIS IN 05/02/16 [facility] [address] [place] [address]
== END 2016-05-02 18:11 | disposition hospice, inpatient (51) | DRG 190 ==
LOC: D.ER 21:32 → D.ICU 23:39 → D.MS 23:39 → D.ICU 04-27 17:05
PROVIDERS: Emergency Medicine; Internal Medicine Pulmonary Disease; ADMIT Family Medicine
PROC: 0T9B70Z Drainage of Bladder with Drainage Device, Via Natural or Artificial Opening (ICD-10-PCS; principal; 2016-04-29)
DX: J44.0 Chronic obstructive pulmonary disease with (acute) lower respiratory infection (principal); I21.4 Non-ST elevation (NSTEMI) myocardial infarction; J15.6 Pneumonia due to other Gram-negative bacteria; C34.90 Malignant neoplasm of unspecified part of unspecified bronchus or lung; I24.8 Other forms of acute ischemic heart disease; J44.1 Chronic obstructive pulmonary disease with (acute) exacerbation; I10 Essential (primary) hypertension; E03.9 Hypothyroidism, unspecified; I25.10 Atherosclerotic heart disease of native coronary artery without angina pectoris; Z99.81 Dependence on supplemental oxygen; I49.9 Cardiac arrhythmia, unspecified; D64.9 Anemia, unspecified; R53.81 Other malaise; E78.5 Hyperlipidemia, unspecified; I48.0 Paroxysmal atrial fibrillation; Z95.0 Presence of cardiac pacemaker; Z66 Do not resuscitate; K59.00 Constipation, unspecified

== ENCOUNTER 2016-05-02 18:13 | Inpatient (IN) | payer OTHER ==
[~2016-05-02] VITALS: Ht 170.2 cm; Wt 71.8 kg
[2016-05-02 18:32] VITALS: BP 150/110; Ht 170.2 cm; Wt 71.8 kg
[2016-05-02 19:00] VITALS: BP 132/108
--- NOTE | 2016-05-02 19:45 | NUR ---
ASSESSMENT COMPLETED. TEMP 97.9 ORALLY. FAMILY AT BEDSIDE. PT DENIES ANY NEEDS AT PRESENT. +1 PITTING EDEMA TO LE'S BILATERALLY. CRACKLES THROUGHOUT LUNG LOBE BELTRAN. RT INFUSAPORT WITH NS @ KVO AND MUSIC PROFESSOR MORPHINE CONTINUOUS @ 0.5MG/HR. DENIES PAIN. 02 @ 15L/MIN OXIMIZER. WILL MONITOR.
[2016-05-02 20:00] VITALS: BP 160/116
--- NOTE | 2016-05-02 21:00 | NUR ---
BOLUS OF 1MG OF MORPHINE VIA SLAB LIFTING SUPERVISOR PUMP GIVEN FOR PAIN PER REQUEST. B/P ELEVATED AT PRESENT. SITTING UP IN BED EATING CHICKEN. FAMILY AT BEDSIDE.
--- NOTE | 2016-05-02 21:49 | NUR ---
REPORT GIVEN TO CHERI REY.
--- NOTE | 2016-05-02 22:00 | NUR ---
TAKEN OVER TO MED -SURG ROOM 2236 VIA BED. NURSES AIDE AT BEDSIDE. CONNECTED O2 TO WALL. EYES CLOSED. NO ACUTE DISTRESS NOTED. WILL MONITOR.
[2016-05-03 02:00] VITALS: BP 148/109
--- NOTE | 2016-05-03 06:05 | NUR ---
PT RESTLESS AND BREATHING IS LABORED. PULLING AT TUBES AND LINES. GAVE ATIVAN 1 MG IV PUSH. FAMILY AT BEDSIDE. WILL CONTINUE TO MONITOR.
--- NOTE | 2016-05-03 08:00 | NUR ---
ASSESSMENT COMPLETE PT ON HOSPICE CARE WITH IMMINENT PENDING. PT FAMILY AT SIDE VILLANUEVA PATENT TO CLEAR YELLOW URINE TO GRAVITY. MORPHINE CONTINUOUS AT 0.5MG PER HR LUNGS WITH DIMINISHED SOUNDS NOTED. BSA ACTIVVE X 4 O2 AT 16 LPM PER OXYMIZER
--- NOTE | 2016-05-03 10:29 | NUR ---
Nutrition Note: Chart reviewed. Pt now admitted to hospice care. RD available if needed.
--- NOTE | 2016-05-03 15:23 | NUR ---
RESTING QUIETLY IN BED. FAMILY IN ROOM. SOME AGINAL BREATING NOTED. PATIENT IS NON RESPOSIVE TO VERBAL STIMULATION. WILL ASK DR BUSTOS FOR SCOPALIMINE PATCH.
[2016-05-03 16:48] VITALS: BP 140/79
--- NOTE | 2016-05-03 20:00 | NUR ---
PT WAS ASSESSED AT THE BEGINNING OF THE SHIFT. HE WAS BREATHING INTERMITTENLY AND THERE WAS A LOT OF FAMILY AT THE BEDSIDE. HIS RAILROAD FIRER WAS INFUSING WITHOUT PROBLEM AND HE DID NOT APPEAR TO BE IN ANY PAIN AT ALL.
--- NOTE | 2016-05-03 22:00 | NUR ---
PT WAS FOUND TO HAVE STOPPED BREATHING AT THIS TIME. FAMILY WERE ALL GATHERED AT THE BEDSIDE AND THE MD WAS NOTIFIED OF HIS .
--- NOTE | 2016-05-03 23:10 | NUR ---
DR BUSTOS PRONOUNCED THE PATIENT, THE FAMILY DECIDED WHERE [facility] WANTED TO SEND HIM AND THEY WERE CALLED AFTER LUIS DECLINED. ALL PAPER WORK IS FINISHED.
== END 2016-05-03 23:10 | DRG 951 ==
LOC: D.MS 18:13 → D.ICU 18:13 → D.MS 22:00
PROVIDERS: ADMIT Legal Medicine
DX: Z51.5 Encounter for palliative care (principal)